=== PATIENT | male | born 1995 | race Asian ===

== ENCOUNTER 2016-09-20 22:32 | Emergency (ER) | payer OTHER ==
[~2016-09-20] VITALS: Ht 172.7 cm; Wt 62.4 kg
[2016-09-20 22:36] VITALS: TEMP 36.8; Ht 172.7 cm; Wt 62.4 kg
--- NOTE | 2016-09-20 23:29 | EMERGENCY ROOM VISIT NOTE ---
ED Visit Note First contact with patient: 22:42 Chief Complaint: Swollen Gland, Fever History of Present Illness: Patient is a 20-year-old male who presents the emergency room today for evaluation of his fever and swollen glands. The patient reports he developed symptoms 2 days ago. He is had fever since. He took ibuprofen with moderate relief of symptoms. He denies any pain to the neck range discomfort as 0/10. He reports no sore throat or pain with swallowing. He denies any headaches, dizziness, light headedness, nasal congestion, sore throat, ear pressure, nausea, vomiting, or abdominal pain. The patient is concerned as he "hooked up" with a girl who may have mono. He is concerned that he has mono. Medications: No current medications. Allergies: Aspirin PMH: No pertinent past medical history. SHx: Patient is a 20-year-old male [employer] student who lives with roommates. ROS: All pertinent positive and negative review of systems are appropriately documented in the History of Present Illness. Physical Exam: VITAL SIGNS - Vital signs and nursing notes were reviewed. GENERAL - Well nourished, well developed 20-year-old male in no acute distress. Pt communicates well with provider and answers questions appropriately. SKIN - Without rash. HEAD - NC/AT with no obvious deformities. EYES - PERRL with EOMI bilaterally. Sclera without injection. Palpebral conjunctiva pink and moist. EARS - No deformities of external structures noted on gross examination bilaterally. No pain elicited with palpation of the tragus bilaterally. External auditory canals without discharge or otorrhea. Tympanic membranes pearly de leon without retraction or bulging. No fluid or purulent material visualized behind the TM. Handle of malleus, umbo, cone of light, pars tensa/ flaccid all easily visualized. NOSE - Midline and without cyanosis. No purulent drainage noted. Nasal mucosa without mucus discharge. MOUTH/OROPHARYNX - Without perioral cyanosis. Buccal mucosa pink and moist and without leukoplakia. Tongue midline with equal elevation of palate bilaterally. No tonsillar hypertrophy, erythema, or exudates noted. Good dentition noted. NECK - Neck with FROM. Supple to palpation. No lymphadenopathy noted. No nuchal rigidity. LUNGS - Chest wall symmetric without accessory muscle use, intercostals retractions, or central cyanosis. Normal vesicular breath sounds CTA B/L. No wheezes, rales, or rhonchi appreciated. CARDIAC - RRR with S1/S2. No murmur, rubs, or gallops appreciated. ED Course: Patient was seen and evaluated by myself. I had a lengthy conversation with the patient regarding ongoing symptoms. The patient presents concerning for possible exposure to mononucleosis. He's had symptoms of fever as well as palpable lymph node on the LEFT side for the past 48 hours. I explained the patient that testing mono spot would be inconclusive at this point given the lack of symptoms and duration of symptoms at this point. He is encouraged to follow-up with [facility] in 1 week for Monospot. He was educated on worrisome symptoms for return visit to the emergency department. Patient discharged home in good condition. In the evaluation and treatment of this patient, following differential diagnoses were considered: [place], strep, viral URI, mumps, amongst others. Impression: Swollen Gland Discharge Instructions: You were seen in the emergency department for your neck pain. Follow-up with [facility] for repeat Monospot in 1 week if symptoms persist. For pain and fever control, you can use the following jsgd-oru-furbmhk medicines (if >12 yo): - Regular strength (325mg/tab) Tylenol (acetaminophen) 2 tabs every 4-6 hours as needed. Do not exceed 12 tablets in a 24 hour period. Avoid taking more than 4 grams (4000 mg) of Tylenol per day. This includes any other sources of acetaminophen you may take on a regular basis. - Regular strength (200 mg/tab) Advil (ibuprofen) 1-2 tabs every 4-6 hours as needed. Do not exceed a dose of 3200 mg per day. - For best results, alternate dosing of Tylenol and Advil. In addition to your prescribed medications, you can also use the following home remedies: - Warm salt-water gargles 3 times per day can soothe your throat and help to fight infection. - Warm tea with honey can soothe your throat. Return to the emergency department if your symptoms persist or worsen over the next 2-3 days despite treatment course outlined above. Return to the emergency department if you develop the following symptoms of: inability to swallow solids , liquids, or drool; excessive wheezing or inability to catch your breath; or intractable fever or pain. Follow up with your primary care provider in 2-3 days from today's emergency department visit. Current/Historical Medications No Active Prescriptions or Reported Meds Allergies Coded Allergies: Aspirin (Unverified Allergy, Intermediate, LIPS SWELL, 09/20/16) Vital Signs Date Time Temp Pulse Resp B/P Pulse Ox O2 Delivery O2 Flow Rate FiO2 09/20/16 23:37 82 18 122/74 98 09/20/16 22:36 36.8 93 20 118/77 98 Room Air Departure Information Impression Primary Impression: Anterior neck pain Dispostion Home / Self-Care Condition GOOD Prescriptions No Active Prescriptions or Reported Meds Referrals [facility] (PCP) Patient Instructions ED Mononucleosis, My [facility] Additional Instructions You were seen in the emergency department for your neck pain. Follow-up with [facility] for repeat Monospot in 1 week if symptoms persist. For pain and fever control, you can use the following ibpf-jju-hnkzfoi medicines (if >12 yo): - Regular strength (325mg/tab) Tylenol (acetaminophen) 2 tabs every 4-6 hours as needed. Do not exceed 12 tablets in a 24 hour period. Avoid taking more than 4 grams (4000 mg) of Tylenol per day. This includes any other sources of acetaminophen you may take on a regular basis. - Regular strength (200 mg/tab) Advil (ibuprofen) 1-2 tabs every 4-6 hours as needed. Do not exceed a dose of 3200 mg per day. - For best results, alternate dosing of Tylenol and Advil. In addition to your prescribed medications, you can also use the following home remedies: - Warm salt-water gargles 3 times per day can soothe your throat and help to fight infection. - Warm tea with honey can soothe your throat. Return to the emergency department if your symptoms persist or worsen over the next 2-3 days despite treatment course outlined above. Return to the emergency department if you develop the following symptoms of: inability to swallow solids , liquids, or drool; excessive wheezing or inability to catch your breath; or intractable fever or pain. Follow up with your primary care provider in 2-3 days from today's emergency department visit.
[2016-09-20 23:37] VITALS: BP 122/74; PULSE 82; O2SAT 98
== END 2016-09-20 23:39 | disposition home or self-care (01) ==
LOC: C.EDB 22:33 → C.EDC 23:39
DX: R50.9 Fever, unspecified (principal); M54.2 Cervicalgia; R59.0 Localized enlarged lymph nodes

== ENCOUNTER 2016-09-21 21:40 | Emergency (ER) | payer OTHER ==
[~2016-09-21] VITALS: Ht 172.7 cm; Wt 63.5 kg
[2016-09-21 21:46] VITALS: TEMP 36.8; Ht 172.7 cm; Wt 63.5 kg
--- NOTE | 2016-09-21 22:19 | EMERGENCY ROOM VISIT NOTE ---
History Report prepared by Dwight: Ag Lewis Under the Supervision of: Dr. Saul Hodge D.O. First contact with patient: 22:08 Chief Complaint: FEVER Stated Complaint: FEVER,SWOLLEN LYMPH NODES History of Present Illness The patient is a 20 year old male who presents to the Emergency Room with complaints of an on and off fever for the past two days. The patient states that the fever comes and goes every 3-4 hours after he takes Advil it comes back. The patient additionally states that he has swollen lymph nodes. The patient states that he gets some body aches when he gets this fever. He states that he was here yesterday, and he wants a doctor's note because he does not think that he can function. Source of History: patient Onset: two days ago Position: other (global) Quality: other (fever) Timing: other (on and off) Modifying Factors (Relieving): ibuprofen Associated Symptoms: + lymphadenopathy Note: Associated symptoms: Body aches Review of Systems See HPI for pertinent positives & negatives. A total of 10 systems reviewed and were otherwise negative. Past Medical & Surgical Medical Problems: (1) No Known Active Medical Problems Family History Diabetes mellitus Hypertension Social History Smoking Status: Never Smoker Marital Status: single Housing Status: lives with roommate Occupation Status: [employer] student Current/Historical Medications No Active Prescriptions or Reported Meds Allergies Coded Allergies: Aspirin (Unverified Allergy, Intermediate, LIPS SWELL, 09/20/16) Physical Exam Vital Signs Date Time Temp Pulse Resp B/P Pulse Ox O2 Delivery O2 Flow Rate FiO2 09/21/16 22:23 97 18 109/64 98 09/21/16 21:46 36.8 85 20 97/68 99 Room Air Physical Exam CONSTITUTIONAL/VITAL SIGNS: Reviewed / noted above. GENERAL: Non-toxic in appearance. INTEGUMENTARY: Warm, dry, and [place]. HEAD: Normocephalic. EYES: without scleral icterus or trauma. ENT/OROPHARYNX: clear and moist. LYMPHADENOPATHY/NECK: Is supple without lymphadenopathy or meningismus. RESPIRATORY: Lungs clear and equal. CARDIOVASCULAR: Regular rate and rhythm. GI/ABDOMEN: Soft and nontender. No organomegaly or pulsatile mass. No rebound or guarding. Normal bowel sounds. EXTREMITIES: Warm and well perfused. BACK: No CVA tenderness. NEUROLOGICAL: Intact without focal deficits. PSYCHIATRIC: normal affect. MUSCULOSKELETAL: Normally developed with good muscle tone. Medical Decision & Procedures ED Course 2207: Previous medical records were reviewed. The patient was evaluated in room C3. A complete history and physical examination was performed. Medical Decision Differential includes viral illness, influenza, streptococcal pharyngitis, meningitis, pneumonia, sinusitis, UTI, pyelonephritis, otitis media. This is a 20-year-old male who was seen yesterday. He states that he thinks that he will need an excuse for school tomorrow. He does not think he will be able to go to his class because of his symptoms. The patient's primary complaint is that of a fever of around 99-100. He also states that his left anterior lymph node is swollen. He also reports some body aches. Tympanic membranes are clear. Throat is clear. No apparent lymphadenopathy is palpated. The rest of exam is unremarkable. The patient was told the results of his exam. He is felt to be stable for discharge. Impression Primary Impression: Neck pain Scribe Attestation The scribe's documentation has been prepared under my direction and personally reviewed by me in its entirety. I confirm that the note above accurately reflects all work, treatment, procedures, and medical decision making performed by me. Departure Information Prescriptions No Active Prescriptions or Reported Meds Referrals [facility] (PCP) Forms HOME CARE DOCUMENTATION FORM, IMPORTANT VISIT INFORMATION, School Instructions Return To School: 1 day Patient Instructions My [facility] Additional Instructions Follow-up with your doctor for further care and evaluation in 1-2 days as needed or if symptoms persist. Return to the emergency department for worsening or new symptoms or any concerns. You have been examined and treated today on an emergency basis only. This is not a substitute for, or an effort to provide, complete comprehensive medical care. It is impossible to recognize and treat all injuries or illnesses in a single emergency department visit. It is therefore important that you follow up closely with your doctor. Call as soon as possible for an appointment.
[2016-09-21 22:23] VITALS: BP 109/64; PULSE 97; O2SAT 98
== END 2016-09-21 22:23 | disposition home or self-care (01) ==
LOC: C.EDB 21:41 → C.EDC 22:23
DX: G89.3 Neoplasm related pain (acute) (chronic) (principal); M54.2 Cervicalgia; Z88.6 Allergy status to analgesic agent; Z83.3 Family history of diabetes mellitus; Z82.49 Family history of ischemic heart disease and other diseases of the circulatory system

== ENCOUNTER 2017-02-21 09:24 | Emergency (ER) | payer OTHER ==
[~2017-02-21] VITALS: Ht 172.7 cm; Wt 62.1 kg
[2017-02-21 09:32] VITALS: TEMP 36.9; Ht 172.7 cm; Wt 62.1 kg
--- NOTE | 2017-02-21 10:51 | EMERGENCY ROOM VISIT NOTE ---
History First contact with patient: 09:45 Chief Complaint: SORETHROAT Stated Complaint: FEVER,NOSE & THROAT History of Present Illness The patient is a 21 year old male who presents to the Emergency Room with complaints of fever and sore throat. The patient states that yesterday, he developed a sore throat and nasal congestion. He states he has some pain in his right ear/jaw. He reports he had a fever of 100F yesterday. He has been taking ibuprofen at home. He rates his discomfort a 6/10. He denies any difficulty swallowing, neck pain/stiffness, headache or vomiting. Review of Systems A complete 10 point review of systems was reviewed with the patient with pertinent positives and negatives as per history of present illness. All else were negative. Past Medical/Surgical History Medical Problems: (1) No Known Active Medical Problems Family History Diabetes mellitus Hypertension Social History Smoking Status: Never Smoker Marital Status: single Housing Status: lives with roommate Occupation Status: [employer] student Current/Historical Medications No Active Prescriptions or Reported Meds Physical Exam Vital Signs Date Time Temp Pulse Resp B/P (MAP) Pulse Ox O2 Delivery O2 Flow Rate FiO2 02/21/17 11:00 86 18 115/72 96 Room Air 02/21/17 09:32 36.9 86 18 117/74 96 Room Air Physical Exam VITALS: Vitals are noted on the nurse's note and reviewed by myself. Vital signs stable. GENERAL: This is a 21-year-old male, in no acute distress, nondiaphoretic, well- developed well-nourished. SKIN: The skin was without rashes. EARS: External auditory canals clear, tympanic membranes pearly de leon without erythema or effusion bilaterally. EYES: Pupils equal round and reactive to light and accommodation. Conjunctivae without injection, sclerae without icterus. NOSE: Patent, turbinates without inflammation or discharge. MOUTH: Mucous membranes moist. Tonsils are not enlarged. Pharynx is mildly erythematous. Airway patent. NECK: Supple without nuchal rigidity. No lymphadenopathy. HEART: Regular rate and rhythm without murmurs gallops or rubs. LUNGS: Clear to auscultation bilaterally without wheezes, rales or rhonchi. ABDOMEN: Positive bowel sounds x 4. Soft, nontender to palpation. NEURO: Patient was alert and oriented to person place and time. Medical Decision & Procedures Medical Decision Differential diagnosis includes strep pharyngitis, viral pharyngitis, GERD, viral illness, among others. The patient was evaluated as above. Rapid strep swab was obtained and was negative. Culture is pending. The patient likely has a viral illness. He was encouraged to continue Tylenol and ibuprofen for pain/fevers and drink plenty of fluids. He verbalized understanding of my assessment and treatment plan and was discharged home in good condition. Medication Reconcilliation Current Medication List: was personally reviewed by me Blood Pressure Screening Patient's blood pressure: Normal blood pressure Impression Primary Impression: Acute pharyngitis Departure Information Dispostion Home / Self-Care Condition GOOD Prescriptions No Active Prescriptions or Reported Meds Referrals [facility] (PCP) Patient Instructions My [facility] Additional Instructions You were seen in the emergency department for your sore throat. The results of your rapid strep screen were found to be negative. For pain and fever control, you can use the following dmhf-abt-vhynjxi medicines (if >12 yo): - Regular strength (325mg/tab) Tylenol (acetaminophen) 2 tabs every 4-6 hours as needed. Do not exceed 12 tablets in a 24 hour period. Avoid taking more than 4 grams (4000 mg) of Tylenol per day. This includes any other sources of acetaminophen you may take on a regular basis. - Regular strength (200 mg/tab) Advil (ibuprofen) 3-4 tabs every 6 hours as needed. Do not exceed a dose of 3200 mg per day. - For best results, alternate dosing of Tylenol and Advil. In addition to your prescribed medications, you can also use the following home remedies: - Warm salt-water gargles 3 times per day can soothe your throat and help to fight infection. - Warm tea with honey can soothe your throat. Return to the emergency department if your symptoms persist or worsen over the next 2-3 days despite treatment course outlined above. Return to the emergency department if you develop the following symptoms of: inability to swallow solids , liquids, or drool; excessive wheezing or inability to catch your breath; or intractable fever or pain. Follow up with your primary care provider in 2-3 days from today's emergency department visit.
[2017-02-21 11:00] VITALS: BP 115/72; PULSE 86; O2SAT 96
== END 2017-02-21 11:01 | disposition home or self-care (01) ==
LOC: C.EDB 10:01
DX: J02.9 Acute pharyngitis, unspecified (principal); Z83.3 Family history of diabetes mellitus; Z82.49 Family history of ischemic heart disease and other diseases of the circulatory system